=== PATIENT | male | born 1960 | race Caucasian/White ===

== ENCOUNTER → 2023-08-23 07:37 | Outpatient (REF) | payer BC, SELFPAY | LOC: HWRAD 07:37 | PROVIDERS: ATTENDING PHYSICIAN Physician Assistant Medical | DX: R10.84 Generalized abdominal pain (principal) | CPT/HCPCS: 74160; Q9967 ==

== ENCOUNTER 2023-10-03 07:25 | Emergency (ER) | payer BC, SELFPAY ==
[2023-10-03 07:37] VITALS: BP 144/89
--- NOTE | 2023-10-03 08:11 | ED.GENMED ---
History of Present Illness
General
Chief Complaint: Abdominal Pain
Source: patient
Exam Limitations: none
Time Seen by Provider: 10/03/23 08:11
Nursing documentation reviewed up to this point in time: agreed with
Travel History
Have you had any contact with someone who has COVID-19?: No
Do you have any symptoms of coronavirus? Fever > 100 degrees, chills, cough, shortness of breath, sore throat, loss of taste or smell, muscle aches, or headache?: No
History of Present Illness
History of Present Illness:
63-year-old male with recent history of generalized abdominal discomfort and bloating for which he saw his PCP at the end of July and had an ultrasound and a CAT scan that were both unremarkable. He states he has developed a different left
abdominal pain that wraps around to his left flank 4 days ago and it is gradually worsening. He states it is stabbing and 8 out of 10 at this time. He took Advil with little relief last p.m. There are no relieving factors. He denies fever or
chills. Denies nausea or vomiting or diarrhea.
He has had no trouble urinating, he feels a little constipated.
Past History
Past History
ED Past Medical History: Asthma and Other (vertigo)
ED Past Surgical History: Appendectomy
Social History
Tobacco: Smoker
Alcohol: Daily
Drug: None
Personal: Single
Living: alone
Employment: Employed
Review of Systems
Review of Systems
Allergies reviewed?: Yes
All Other Systems: ROS reviewed and negative except as documented in HPI and ROS
Constitutional: Denies fever or chills
Respiratory: Denies trouble breathing
Cardiac: Denies chest pain
ABD/GI: Reports abdominal pain (left) and constipated; Denies nausea, vomiting, diarrhea, bloody stools, black stools or anorexia
: Reports flank pain (left); Denies dysuria, frequency, difficulty voiding or urgency
Musculoskeletal: Reports no symptoms
Skin: Reports no symptoms
Neurological: Reports no symptoms
Phy Exam
Physical Exam
Physical Exam:
GENERAL: No acute distress. A&Ox3.
CONSTITUTIONAL: Afebrile.
EYES: Clear, conjunctivae normal
ENMT: moist mucus membranes, Pharynx nl
RESPIRATORY: Regular respirations, nonlabored, lungs clear.
CARDIOVASCULAR: Regular rate and rhythm, no murmurs, no rubs.
GI: Soft, mild tenderness left abdomen, nondistended, normal BS
MUSCULOSKELETAL: Moves with ease. Well perfused.
SKIN: Warm, dry, pink
PSYCH: Normal mood and affect. Well kept, interactive and appropriate
NEUROLOGIC: Awake, alert and oriented. No focal neurological deficits
Course
Orders/Labs/Results
Orders:
Orders
10/03/23 08:31
Iohexol [Omnipaque] See Protocol PO NOW STA
10/03/23 08:32
Complete Blood Count/With Diff Urgent
Comprehensive Metabolic Panel Urgent
Lipase Urgent
Urinalysis Reflex To Culture Urgent
Date Specimen was Collected: 10/03/23
Time Specimen was Collected: 08:14
10/03/23 10:55
CT Abd/pel W Iv And Oral Contr Urgent
Comment:
Reason For Exam: abd bloating, left side abd pain
Abnormal Lab Results
10/03/23
08:32
MCV 95.5 H fL
(80.0-94.0)
MCH 32.2 H pg
(27.0-31.0)
Abs Immat Gran (auto) 0.1 H 10^3/uL
(0-0.05)
Absolute Monos (auto) 0.8 H 10^3/uL
(0.1-0.6)
Glucose 101 H mg/dl
(70-99)
Lipase 395 H U/L
(23-300)
10/03/23 08:32
10/03/23 08:32
Vital Signs
Initial and Last Documented VS:
Initial Vital Signs
Temp Pulse Resp BP Pulse Ox
98.6 F 81 20 144/89 98
10/03/23 07:37 10/03/23 07:37 10/03/23 07:37 10/03/23 07:37 10/03/23 07:37
Last Documented Vital Signs
Temp Pulse Resp BP Pulse Ox
98.4 F 84 18 134/90 97
10/03/23 12:32 10/03/23 12:32 10/03/23 12:32 10/03/23 12:32 10/03/23 12:32
MDM/Problems Addressed
Differential Diagnosis Includes:
kidney stone, diverticulitis, colitis, pancreatitis
MDM/Problems Addressed:
63-year-old male with recent history of generalized abdominal discomfort and bloating for which he saw his PCP at the end of July and had an ultrasound and a CAT scan that were both unremarkable. He states he has developed a different left
abdominal pain that wraps around to his left flank 4 days ago and it is gradually worsening. He states it is stabbing and 8 out of 10 at this time. He took Advil with little relief last p.m. There are no relieving factors. He denies fever or
chills. Denies nausea or vomiting or diarrhea.
He has had no trouble urinating, he feels a little constipated.
10/03/2023 0826 AM
Recent records reviewed, patient had generalized abdominal discomfort with bloating and had an upper abdominal ultrasound which was unremarkable on 08/15/[address] abdomen with IV only contrast which was unremarkable on 08/23/2023
He states he still has the initial discomfort and bloating but the pain in his left abdomen is new past 4 days
10/03/2023 0858 AM
CBC with no clinically significant abnormality
CMP: No clinically significant abnormality
UA: Negative
Will proceed with CT abdomen pelvis with p.o. and IV contrast.
10/03/2023 1209 PM
CAT scan abdomen pelvis radiology report read: IMPRESSION:
1. No significant acute abnormality identified in the abdomen or pelvis, as described above.
Nothing in workup today to explain symptoms. Will have him follow-up with GI
Case discussed with Dr. Boone who agrees with assessment and plan.
As I was going over discharge instructions patient now informs me that he has an appointment in [address] Avalos
Patient ambulated out with normal gait upon discharge
*Critical Care Note
Total Time (30-74mins, 75-104mins- exclusive of procedures): Not Applicable
ED Attending Note
-
Portions of this chart may have been created with voice recognition software.� Occasional wrong word or��sound alike� substitutions may have occurred due to the inherent limitations of voice recognition software.
Discharge Plan
Departure
Patient Disposition: Home (Routine Discharge)
Date of Disposition: 10/03/23
Time of Disposition: 12:15
Patient with high blood pressure during this ER visit?: No
Condition: Good
Discharge Problem:
Abdominal pain
Instructions: Abdominal Pain
Prescriptions:
No Action
multivitamin [Multi-Day] 1 EACH tablet
1 ea PO DAILY
Referrals:
Regina Abreu PA-C [Family Provider] -
Rebel Avalos MD [Active] - Keep scheduled appt
Chaya Lucas DO [Active] - Next open appointment
Activity Restrictions/Additional Instructions:
As we discussed, your workup here today shows nothing worrisome. Nothing today to explain your symptoms.
Call the GI doctors office to make an appointment for complete GI workup.
Tylenol or ibuprofen (with food)as needed for pain.
Interventions
Interventions:
*Risk Screen - Suicide Last Done: 10/03/23 07:37
*General Assessment Last Done: 10/03/23 07:37
*Neglect/Abuse Screening Last Done: 10/03/23 07:37
ED- Fall Risk Assessment Last Done: 10/03/23 08:27
*ED COVID-19 Vaccine History Last Done: 10/03/23 08:26
*Nursing Disposition Last Done: 10/03/23 12:32
MA-Omncpc-Ymmymfxyxz Assessment Last Done: 10/03/23 08:33
Discharge Date and Time
Discharge Date/Time: 10/03/23 12:36
[2023-10-03 08:26] VITALS: BMI 25.1
[2023-10-03 08:31] VITALS: BP 148/94
[2023-10-03] MEDS: OMNIPAQUE 50 ML PO (08:40)
[2023-10-03 08:47] LABS: % Basophils 0.8 % (0-2); % Eosinophils 2.3 % (0-6); % Immature Granulocytes 0.5 % (0-0.5); % Lymphocytes 30.6 % (20.5-51.1); % Monocytes 7.9 % (1.7-9.3); % Neutrophils 57.9 % (42.2-75.2); Absolute Basophils 0.1 10^3/uL (0-0.2); Absolute Eosinophils 0.2 10^3/uL (0-0.7); Absolute Immature Granulocytes 0.1 10^3/uL (0-0.05); Absolute Monocytes 0.8 10^3/uL (0.1-0.6); Absolute Neutrophils 5.7 10^3/uL (1.4-6.5); Hematocrit 46.2 % (39.0-52.0); Hemoglobin 15.6 g/dL (13.0-18.0); Mean Corp Hgb Conc. 33.8 g/dL (33.0-37.0); Mean Corpuscular Hgb 32.2 pg (27.0-31.0); Mean Corpuscular Volume 95.5 fL (80.0-94.0); Mean Platelet Volume 8.9 fL (7.4-10.4); Nucleated Red Blood Cells % 0 % (-); Platelet Count 222 10^3/uL (130-400); Red Blood Cell Count 4.84 10^6/uL (4.70-6.10); White Blood Cell Count 9.8 10^3/uL (4.8-10.8)
[2023-10-03 09:02] LABS: ALT (SGPT) 23 U/L (0-50); AST (SGOT) 26 U/L (17-59); Albumin 4.4 g/dl (3.5-5.0); Alkaline Phosphatase 69 U/L (38-126); Blood Urea Nitrogen 13 mg/dl (9-20); Calcium 9.4 mg/dl (8.4-10.2); Carbon Dioxide 27 mmol/L (22-30); Chloride 105 mmol/L (98-107); Estimated Creatinine Clearance 106 ml/min; Glucose 101 mg/dl (70-99); Lipase 395 U/L (23-300); Potassium 4.3 mmol/L (3.5-5.1); Sodium 135 mmol/L (135-145); Total Bilirubin 0.5 mg/dl (0.2-1.3); Total Protein 6.9 g/dl (6.3-8.2); eGFR > 60.00
[2023-10-03 11:02] LABS: Urine Albumin Negative (Neg - Trace); Urine Bilirubin Negative (Negative); Urine Character Clear (Clear); Urine Color Yellow; Urine Glucose Negative (Negative); Urine Ketone Negative (Negative); Urine Leukocyte Negative (Negative); Urine Nitrite Negative (Negative); Urine Occult Blood Negative (Negative); Urine Urobilinogen Negative (Neg - 1+)
[2023-10-03 11:57] VITALS: BP 141/87
[2023-10-03 12:00] VITALS: BP 134/90
[2023-10-03 12:32] VITALS: BP 134/90
== END 2023-10-03 12:36 | disposition home or self-care (01) ==
LOC: EMR 07:25
PROVIDERS: Registered Nurse; EMERGENCY PHYSICIAN Emergency Medicine; FAMILY PHYSICIAN Physician Assistant Medical
DX: R10.9 Unspecified abdominal pain (principal)
CPT/HCPCS: 99285; 74177; 80053; 81003; 83690; 85025; Q9967

== ENCOUNTER → 2023-11-24 06:22 | Day surgery (SDC) | payer BC, SELFPAY | LOC: GI 06:22 | PROVIDERS: ATTENDING PHYSICIAN Internal Medicine Gastroenterology | DX: Z12.11 Encounter for screening for malignant neoplasm of colon (principal); K63.5 Polyp of colon; K64.8 Other hemorrhoids; Z86.010 Personal history of colon polyps | CPT/HCPCS: 45380; 88305 ==

== ENCOUNTER → 2024-09-24 12:59 | Outpatient (REF) | payer BC, SELFPAY ==
[2024-09-24 14:13] LABS: Blood Urea Nitrogen 13 mg/dl (9-20); Calcium 9.6 mg/dl (8.4-10.2); Carbon Dioxide 28 mmol/L (22-30); Chloride 101 mmol/L (98-107); Glucose 97 mg/dl (70-99); Potassium 4.2 mmol/L (3.5-5.1); Sodium 136 mmol/L (135-145); eGFR > 60.00
== END ==
LOC: REG 12:59
PROVIDERS: ATTENDING PHYSICIAN Family Medicine
DX: Z01.89 Encounter for other specified special examinations (principal)
CPT/HCPCS: 36415; 80048

== ENCOUNTER → 2024-09-30 16:55 | Outpatient (REF) | payer BC, SELFPAY | LOC: RAD 16:55 | PROVIDERS: ATTENDING PHYSICIAN Family Medicine | DX: K40.90 Unilateral inguinal hernia, without obstruction or gangrene, not specified as recurrent (principal) | CPT/HCPCS: 74177; Q9967 ==

== ENCOUNTER 2024-10-28 06:29 | Day surgery (SDC) | payer BC, SELFPAY ==
[2024-10-14 14:12] VITALS: BMI 25.3
--- NOTE | 2024-10-17 14:07 | PTCARENOTE ---
Abnormal EKG reviewed by Dr. Mcknight, no further action requested.
[2024-10-28] VITALS (8 sets, daily range): BP systolic 136–162; BP diastolic 72–94; BMI 25.3
[2024-10-28] MEDS: HEPARIN 5000 UNITS SC (10:02)
[2024-10-28] MEDS: TYLENOL 1000 MG PO (10:02)
[2024-10-28] MEDS: NORMOSOL-R/PLASMALYTE-A 1000 IV (10:03)
--- NOTE | 2024-10-28 12:53 | OR.RPT ---
Operative Report
Operative Report
Primary Surgeon: Miriam
Assisting: Vinnie SINGH
Pre-op Diagnosis: Bilateral inguinal hernia
Post-op Diagnosis: Same
Procedure Performed: Robot assisted laparoscopic repair of bilateral inguinal hernias
Anesthesia Type: GETA
Specimen / Cultures: None
Estimated Blood Loss: 5cc
Complications: None immediate
Operative Findings: Right indirect defect, left direct defect, very thin pseudosac not everted, fat used to cover defect; B/L XL MID 3D Max
Date of surgery: 10/28/24
Indications:� This 64M developed a symptomatic left inguinal hernia. Cross sectional imaging revealed a contralateral hernia as well. He asked that we fix both sides today. Robot assisted laparoscopic repair of left inguinal hernias was planned.
Description of procedure:� The patient was taken to the operating room and positioned into supine position. The patient�s abdomen was prepped and draped in standard sterile fashion. [place] placed. A time-out was completed verifying correct patient,
procedure, site, positioning, and implants and special equipment prior to beginning this procedure.
A stab incision was made in the left upper quadrant, a Veress needle was inserted and proper position was confirmed by aspiration and saline drop test. Following this, pneumoperitoneum was created with insufflation of carbon dioxide to 12 mmHg. Then
a 8mm robotic trocar was inserted above and to the left of the umbilicus. A laparoscope was inserted and the area of initial trocar entry and Veress needle placement were both inspected and no injuries were found. Two 8mm trocars were then placed
lateral to the rectus sheath under direct visualization.
Both inguinal regions were inspected and the median umbilical ligament, medial umbilical ligament, and lateral umbilical fold were identified. Attention was turned to the right groin. The peritoneum was incised transversely above the defect and a
flap was developed in the caudad direction. Deny�s ligament was identified ultimately dissected to its junction with the iliac vein and the space of Retzius was developed bluntly. The dissection was continued inferiorly to the iliopubic tract,
with care taken to avoid injury to the femoral branch of the genitofemoral nerve and the lateral femoral cutaneous nerve. The cord structures were parietalized.
The direct space was inspected and a hernia defect was not identified. The femoral space was inspected no defect was identified. The indirect space was inspected and a hernia was identified and reduced by gentle traction. The canal was inspected and
a small cord lipoma was identified and reduced.
Attention was turned to the left groin and the above process was repeated. An direct defect was identified and reduced by gentle traction. The pseudosac was very thin and not everted. Preperitoneal fat was used to cover the defect and secured with
2-0 vycril suture. The canal was inspected and no cord lipoma was identified.
Extra large right and left MID 3D max mesh was passed through a trocar. The mesh was placed into the preperitoneal space and moved into position to lay flat and completely cover the direct, indirect, and femoral spaces with overlap at the midline.
The mesh was secured into place using 2-0 vicryl suture to Deny�s ligament medially. Care was taken to avoid the inferolateral triangles containing the iliac vessels and genital nerves. The peritoneal flap was closed over the mesh and secured with
2-0 monocryl stratafix suture in similar positions of safety. A 14g angiocath was used to decompress the preperitoneal space revealing good seal and all mesh in good position without folding or curling.
After ensuring adequate hemostasis, the trocars were removed and the pneumoperitoneum allowed to escape. The trocar incisions were closed at the skin level using 4-0 monocryl and topical skin adhesive. All counts were correct and the patient
tolerated the procedure well and was taken to the postanesthesia care unit in stable condition.
The assistance of Vinnie SINGH was required due to the complexity of the procedure. During the procedure she assisted with retraction, resection, and closure of the wound.
== END 2024-10-28 14:20 | disposition home or self-care (01) ==
LOC: SDS 06:29
PROVIDERS: ATTENDING PHYSICIAN Surgery; FAMILY PHYSICIAN Family Medicine
DX: K40.20 Bilateral inguinal hernia, without obstruction or gangrene, not specified as recurrent (principal)
CPT/HCPCS: 49650; 93005; C1781; J1335

== ENCOUNTER 2025-01-19 10:26 | Emergency (ER) | payer BC, SELFPAY ==
[2025-01-19 10:34] VITALS: BP 162/92
--- NOTE | 2025-01-19 10:50 | ED.MUSCINJ ---
HPI-Injury
General
Chief Complaint: Musculo-Skeletal Complaint
Source: patient
Exam Limitations: none
Time Seen by Provider: 01/19/25 10:39
Nursing documentation reviewed up to this point in time: agreed with
History of Present Illness-Injury
Initial Injury comments:
64-year-old male stubbed his right great toe on his step last night, presents for redness swelling and pain.
Past History
Past History
ED Past Medical History: Asthma and Other (vertigo)
ED Past Surgical History: Appendectomy
Social History
Tobacco: Smoker
Alcohol: Daily
Drug: None
Personal: Single
Living: alone
Employment: Employed
Review of Systems
Review of Systems
Allergies reviewed?: Yes
All Other Systems: ROS reviewed and negative except as documented in HPI and ROS
Musculoskeletal: Reports other (Pain, swelling, redness right great toe)
Phy Exam
Physical Exam
Physical Exam:
PHYSICAL EXAMINATION:
General: no apparent distress, not acutely ill
Neuro: alert and oriented.
Psychiatric: well kept. interactive and cooperative
Musculoskeletal: Moves with ease. Right great toe is swollen, reddened, tender, brisk capillary refill.
Skin: Warm, pink.
Injury Course
Orders/Labs/Results
Orders:
Orders
01/19/25 10:42
CR Toe(s) Min 2 Vw Right Urgent
Comment:
Reason For Exam: stubbed, pain, swelling
Indicate Which Toe:: Great
MDM/Problems Addressed
Differential Diagnosis Includes:
Contusion versus fracture
MDM/Problems Addressed:
64-year-old male stubbed his right great toe on his step last night, presents for redness swelling and pain.
X-ray right great toe initially read by this examiner: No fracture noted.
*Pulse Oximetry
SaO2: 97
Oxygen Mode of Delivery: Room air
Patient hypoxic: not evaluated
*Critical Care Note
Total Time (30-74mins, 75-104mins- exclusive of procedures): Not Applicable
ED Attending Note
-
Portions of this chart may have been created with voice recognition software.� Occasional wrong word or��sound alike� substitutions may have occurred due to the inherent limitations of voice recognition software.
Discharge Plan
Departure
Patient Disposition: Home (Routine Discharge)
Date of Disposition: 01/19/25
Time of Disposition: 11:39
Patient with high blood pressure during this ER visit?: Yes
Condition: Good
Discharge Problem:
Contusion of great toe of right foot
Instructions: Contusion (DC), Using Cold for Pain
Prescriptions:
No Action
multivitamin Tablet
1 tab PO DAILY
ibuprofen [Advil] 200 mg Tablet
400 mg PO Q6H PRN (Reason: pain)
tramadol 50 mg tablet
50 - 100 mg PO Q6H PRN (Reason: Pain) Qty: 20 0RF
Referrals:
Alicia Gates DO [Family Provider, Family Practice]
Activity Restrictions/Additional Instructions:
As we discussed, no fracture of the toe. Tylenol ibuprofen as needed for pain
Elevating the foot to the level of your heart or slightly higher is much as you can in the next 2 days will help minimize swelling. Cold compress 20 minutes off and on
Interventions
Interventions:
*Risk Screen - Suicide Last Done: 01/19/25 10:39
*General Assessment Last Done: 01/19/25 10:40
*Neglect/Abuse Screening Last Done: 01/19/25 10:39
*ED- Fall Risk Assessment Last Done: 01/19/25 10:40
*ED COVID-19 Vaccine History Last Done: 01/19/25 10:41
*Nursing Disposition Last Done: 01/19/25 11:50
ED-Musculoskeletal Assessment Last Done: 01/19/25 10:41
Discharge Date and Time
Discharge Date/Time: 01/19/25 11:51
Print Language: ESTONIAN
== END 2025-01-19 11:51 | disposition home or self-care (01) ==
LOC: EMR 10:26
PROVIDERS: EMERGENCY PHYSICIAN Emergency Medicine; FAMILY PHYSICIAN Family Medicine
DX: S90.119A Contusion of unspecified great toe without damage to nail, initial encounter (principal); S90.31XA Contusion of right foot, initial encounter; X58.XXXA Exposure to other specified factors, initial encounter; J45.909 Unspecified asthma, uncomplicated; F17.200 Nicotine dependence, unspecified, uncomplicated; Z90.49 Acquired absence of other specified parts of digestive tract
CPT/HCPCS: 99283; 73660

== ENCOUNTER → 2025-02-06 07:34 | Outpatient (REF) | payer BC, SELFPAY | LOC: RCS 07:34 | PROVIDERS: ATTENDING PHYSICIAN Internal Medicine Cardiovascular Disease; FAMILY PHYSICIAN Family Medicine | DX: R94.31 Abnormal electrocardiogram [ECG] [EKG] (principal); R06.02 Shortness of breath | CPT/HCPCS: 93017 ==

== ENCOUNTER → 2025-03-21 14:39 | Outpatient (REF) | payer BC, SELFPAY | LOC: HWRCS 14:39 | PROVIDERS: ATTENDING PHYSICIAN Internal Medicine Cardiovascular Disease; FAMILY PHYSICIAN Family Medicine | DX: R94.31 Abnormal electrocardiogram [ECG] [EKG] (principal); R06.02 Shortness of breath | CPT/HCPCS: 93306 ==

== ENCOUNTER 2025-04-10 08:33 | Emergency (ER) | payer BC, SELFPAY ==
[2025-04-10 08:38] VITALS: BP 161/95
[2025-04-10 09:07] VITALS: BMI 23.6
--- NOTE | 2025-04-10 09:34 | ED.GENMED ---
History of Present Illness
<Candelario Bae PA-C - Last Filed: 04/10/25 09:51>
General
Chief Complaint: Eye Problems
Time Seen by Provider: 04/10/25 09:03
History of Present Illness
History of Present Illness:
Patient is a 65-year-old male here today for evaluation of left eye pain. He reports this past Monday he was cutting metal and felt like something went into his eye. He flushed his eye and the symptoms resolved. 2 days ago he developed recurrence
of a foreign body sensation however this self resolved and went away until this morning. This morning, the patient noticed recurrence of the symptoms again associated with sensitivity to light and mild discomfort. No pus or drainage. He does not
wear contact lenses. No fevers. No other acute complaints.
Past History
<Candelario Bae PA-C - Last Filed: 04/10/25 09:51>
Past History
ED Past Medical History: Asthma and Other (vertigo)
ED Past Surgical History: Appendectomy
Social History
Tobacco: Smoker
Alcohol: Daily
Drug: None
Personal: Single
Living: alone
Employment: Employed
Review of Systems
<Candelario aBe PA-C - Last Filed: 04/10/25 09:51>
Review of Systems
All Other Systems: ROS reviewed and negative except as documented in HPI and ROS
Phy Exam
<Candelario Bae PA-C - Last Filed: 04/10/25 09:51>
Physical Exam
Physical Exam:
GENERAL: Alert , in no apparent distress
EYE: pupils equal and reactive, extraocular movements intact, there is mild left-sided conjunctival injection, no open globe injury, no opacity noted, no acute abnormalities noted otherwise
NECK: Supple
NEUROLOGICAL: Alert and oriented, no focal neuro deficits
SKIN: Warm and dry, skin intact.
MUSCULOSKELETAL: No edema, well perfused.
PSYCH: Normal and appropriate interaction.
Course
<Candelario Bae PA-C - Last Filed: 04/10/25 09:51>
Orders/Labs/Results
Orders:
Orders
04/10/25 09:44
Tetracaine HCl [Tetracaine 0.5% Ophthalmic Solution] 1 drop .ROUTE .[facility]-MED ONE
Vital Signs
Initial and Last Documented VS:
Initial Vital Signs
Temp Pulse Resp BP Pulse Ox
98.0 F 79 18 161/95 98
04/10/25 08:38 04/10/25 08:38 04/10/25 08:38 04/10/25 08:38 04/10/25 08:38
Last Documented Vital Signs
Temp Pulse Resp BP Pulse Ox
98.0 F 79 18 161/95 98
04/10/25 08:38 04/10/25 08:38 04/10/25 08:38 04/10/25 08:38 04/10/25 09:35
<Bryson Andrews MD - Last Filed: 04/10/25 10:42>
Orders/Labs/Results
Orders:
Orders
04/10/25 09:44
Tetracaine HCl [Tetracaine 0.5% Ophthalmic Solution] 1 drop .ROUTE .[facility]-MED ONE
Vital Signs
Initial and Last Documented VS:
Initial Vital Signs
Temp Pulse Resp BP Pulse Ox
98.0 F 79 18 161/95 98
04/10/25 08:38 04/10/25 08:38 04/10/25 08:38 04/10/25 08:38 04/10/25 08:38
Last Documented Vital Signs
Temp Pulse Resp BP Pulse Ox
98.0 F 79 18 161/95 98
04/10/25 08:38 04/10/25 08:38 04/10/25 08:38 04/10/25 08:38 04/10/25 09:35
Procedures
<Candelario Bae PA-C - Last Filed: 04/10/25 09:51>
Eye Procedures
Anesthesia: other (tetracaine, 1 drop, applied to left eye, visualized under UV light, reveals corneal abrasion 1 mm in diameter along center of eye, no foreign body)
<Candelario Bae PA-C - Last Filed: 04/10/25 09:51>
MDM/Problems Addressed
Differential Diagnosis Includes:
Patient is a 65-year-old male here today for evaluation of left eye pain. Patient well-appearing. Examination remarkable for mild left-sided conjunctival injection. A fluorescein stain was performed which reveals a small amount of dye uptake
consistent with a corneal abrasion along the center approximately 1 mm in diameter. No findings of a foreign body. No rust ring. No other acute abnormalities noted otherwise. Eye pressure was obtained as well given age and symptoms which is
normal at 3. We discussed supportive measures and will prescribe erythromycin ointment. We discussed eye doctor follow-up. All questions answered. Stable for discharge.
<Candelario Bae PA-C - Last Filed: 04/10/25 09:51>
*Pulse Oximetry
SaO2: 98
Oxygen Mode of Delivery: Room air
Patient hypoxic: no
*Critical Care Note
Total Time (30-74mins, 75-104mins- exclusive of procedures): Not Applicable
ED Attending Note
<Candelario Bae PA-C - Last Filed: 04/10/25 09:51>
-
Portions of this chart may have been created with voice recognition software.� Occasional wrong word or��sound alike� substitutions may have occurred due to the inherent limitations of voice recognition software.
<Bryson Andrews MD - Last Filed: 04/10/25 10:42>
ED Attending Note
Patient seen and examined by attending physician: Yes
ED Attending Note:
Patient presents to ED secondary to intermittent foreign body sensation in his left eye which occurred last week when he was cutting the metal. Patient immediately flushed his eye with improvement. However, over the past 4 days, he has had
intermittent recurrent sensation of foreign body with pain. This morning, when he got up, he once again felt discomfort along with redness in his left eye. Denies headache. Denies dizziness. Denies blurred vision.
Physical Exam
General: mild distress, not acutely ill. afebrile
Head: nc/at. eomi. Left eye -injected conjunctiva noted
Neck: supple. normal range of motion.
Neuro: alert and oriented x 3. no focal neurological deficits
Skin: no rash
Psychiatric: well kept. interactive and cooperative
Extremities: no edema. no calf tenderness.
Positive fluorescein dye uptake noted. Visual acuity noted. IOP noted - normal range. Pt will be treated with erythromycin ophthalmic ointment, along with referral to ophthalmology for an outpatient consultation.
Discharge Plan
Departure
Patient Disposition: Home (Routine Discharge)
Date of Disposition: 04/10/25
Time of Disposition: 09:34
Patient with high blood pressure during this ER visit?: Yes
Condition: Good
Discharge Problem:
Corneal abrasion, left
Instructions: Corneal abrasion - ED (DC)
Prescriptions:
New
erythromycin 5 mg/gram (0.5 %) ointment
0.5 inch ophthalmic (eye) QID 5 Days Qty: 3.5 0RF
No Action
multivitamin Tablet
1 tab PO DAILY
ibuprofen [Advil] 200 mg Tablet
400 mg PO Q6H PRN (Reason: pain)
tramadol 50 mg tablet
50 - 100 mg PO Q6H PRN (Reason: Pain) Qty: 20 0RF
Referrals:
Micheal Spangler MD [Active, Ophthalmology] - Follow up in 5-7 days
Alicia Gates DO [Family Provider, Family Practice]
Activity Restrictions/Additional Instructions:
You were seen today for evaluation of left eye pain.
Your examination reveals a small corneal abrasion (scratch) to the left eye. We are treating you with antibiotic ointment to use as directed to help lubricate the eye and prevent against infection.
Please follow-up with your eye doctor within the next 5 to 7 days for close reevaluation.
Return for any new, worsening, or concerning symptoms.
Interventions
Interventions:
*Risk Screen - Suicide Last Done: 04/10/25 08:38
*General Assessment Last Done: 04/10/25 08:38
*Neglect/Abuse Screening Last Done: 04/10/25 08:38
*ED- Fall Risk Assessment Last Done: 04/10/25 08:50
*ED COVID-19 Vaccine History Last Done: 04/10/25 08:50
*Nursing Disposition Last Done: 04/10/25 09:56
Discharge Date and Time
Discharge Date/Time: 04/10/25 09:56
Print Language: IRISH
== END 2025-04-10 09:56 | disposition home or self-care (01) ==
LOC: EMR 08:33
PROVIDERS: EMERGENCY PHYSICIAN Emergency Medicine; FAMILY PHYSICIAN Family Medicine
DX: S05.02XA Injury of conjunctiva and corneal abrasion without foreign body, left eye, initial encounter (principal); X58.XXXA Exposure to other specified factors, initial encounter; J45.909 Unspecified asthma, uncomplicated; F17.200 Nicotine dependence, unspecified, uncomplicated
CPT/HCPCS: 99283